=== PATIENT | male | born 1930 | race Caucasian/White ===

== ENCOUNTER 2018-12-30 11:12 | Inpatient (IN) | payer MEDICARE, OTHER ==
--- NOTE | 2018-12-30 12:17 | ER Document Report ---
ED Medical Screen (RME) - General Chief Complaint: Leg Swelling Stated Complaint: LEG SWELLING Time Seen by Provider: 12/30/18 12:14 Notes: Chief complaint: Leg edema History of complain:( obtained from----patient) 88 years old male with a history of CHF, A. fib was sent over here because of difficulty in breathing particularly at nighttime as well as swelling of the lower extremity. Within the last few weeks he has lost about 14 pounds. Also having decreased appetite. Had exertional shortness of breath. Coughing clear sputum. PHYSICAL EXAMINATION: GENERAL: Cachectic HEAD: Atraumatic, normocephalic. EYES: Pupils equal round and reactive to light, extraocular movements intact, conjunctiva are normal. ENT: Nares patent, oropharynx clear without exudates. Moist mucous membranes. NECK: Normal range of motion, supple without lymphadenopathy LUNGS: Bilateral inspiratory rales over the lower lung field HEART: Regular rate and rhythm without murmurs ABDOMEN: Soft, nontender, nondistended abdomen. No guarding, no rebound. No masses appreciated. Examination of genitals-deferred Musculoskeletal: 1-2+ pitting edema over the lower extremity Dictation was performed using [employer] voice recognition software TRAVEL OUTSIDE OF THE [place] IN LAST 30 DAYS: No - Related Data Allergies/Adverse Reactions: aspirin [Aspirin] Allergy (Verified 04/16/12 14:03) heart flutter Past Medical History - Social History Chew tobacco use (# tins/day): No Frequency of alcohol use: None Drug Abuse: None - Past Medical History Cardiac Medical History: Reports: Hx Hypertension - losartan Denies: Hx Coronary Artery Disease, Hx Heart Attack Pulmonary Medical History: Reports: Hx Pneumonia Denies: Hx Asthma, Hx Bronchitis, Hx COPD Neurological Medical History: Denies: Hx Cerebrovascular Accident, Hx Seizures Renal/ Medical History: Denies: Hx Peritoneal Dialysis GI Medical History: Reports: Hx Hiatal Hernia - lansoprazole. Denies: Hx Hepatitis, Hx Ulcer Musculoskeltal Medical History: Reports Hx Arthritis Infectious Medical History: Denies: Hx Hepatitis Past Surgical History: Denies: Hx Open Heart Surgery, Hx Pacemaker - Immunizations Hx Diphtheria, Pertussis, Tetanus Vaccination: Yes - not within 5 years Physical Exam - Vital signs Vitals: Pulse Resp BP Pulse Ox 96 16 118/97 H 100 12/30/18 11:40 12/30/18 11:40 12/30/18 11:40 12/30/18 11:40 Course - Vital Signs Vital signs: Temp Pulse Resp BP Pulse Ox 96 16 118/97 H 100 12/30/18 11:40 12/30/18 11:40 12/30/18 11:40 12/30/18 11:40
[2018-12-30 13:14] LABS: ABSOLUTE LYMPHOCYTES (AUTO) 0.5 10^3/uL (0.5-4.7); ABSOLUTE MONOCYTES (AUTO) 0.4 10^3/uL (0.1-1.4); ABSOLUTE NEUT (AUTO) 2.5 10^3/uL (1.7-8.2); BASOPHILS % (AUTO) 0.6 % (0-2); EOSINOPHILS % (AUTO) 0.4 % (0-6); HEMATOCRIT 30.5 % (37.9-51.0); HEMOGLOBIN 9.7 g/dL (13.5-17.0); LYMPHOCYTES % (AUTO) 14.2 % (13-45); MEAN CORPUSCULAR HEMOGLOBIN 28.6 pg (27.0-33.4); MEAN CORPUSCULAR HGB CONC 31.9 g/dL (32.0-36.0); MEAN CORPUSCULAR VOLUME 90 fl (80-97); MONOCYTES % (AUTO) 12.7 % (3-13); PLATELET COUNT 134 10^3/uL (150-450); RED CELL DISTRIBUTION WIDTH 23.3 % (11.5-14.0); SEGMENTED NEUTROPHILS % (AUTO) 72.1 % (42-78); TOTAL CELLS COUNTED % (AUTO) 100 %; WHITE BLOOD COUNT 3.5 10^3/uL (4.0-10.5)
--- NOTE | 2018-12-30 13:15 | RADIOLOGY REPORT (SQ) ---
EXAM DESCRIPTION: CHEST SINGLE VIEW COMPLETED DATE/TIME: 12/30/2018 1:06 pm REASON FOR STUDY: Congestive heart failure COMPARISON: 12/02/2008 EXAM PARAMETERS: NUMBER OF VIEWS: One view. TECHNIQUE: Single frontal radiographic view of the chest acquired. RADIATION DOSE: NA LIMITATIONS: None. FINDINGS: LUNGS AND PLEURA: Small pleural effusions. Considerable opacification in the left base. Pulmonary vascular congestion with mild pulmonary edema. MEDIASTINUM AND HILAR STRUCTURES: No masses. Contour normal. HEART AND VASCULAR STRUCTURES: Heart size is borderline. BONES: No acute findings. HARDWARE: None in the chest. OTHER: No other significant finding. IMPRESSION: Borderline cardiomegaly with mild pulmonary edema. Small pleural effusions. Likely lef t lower lobe pneumonia. TECHNICAL DOCUMENTATION: JOB ID: [id number] [employer]- All Rights Reserved Reading location - IP/workstation name: [email or web address]
[2018-12-30 13:32] LABS: ALANINE AMINOTRANSFERASE 36 U/L (21-72); ALBUMIN 3.9 g/dL (3.5-5.0); ALKALINE PHOSPHATASE 85 U/L (38-126); ANION GAP 10 (5-19); ASPARTATE AMINO TRANSFERASE 48 U/L (17-59); BILIRUBIN,DIRECT 0.3 mg/dL (0.0-0.4); BILIRUBIN,TOTAL 0.6 mg/dL (0.2-1.3); BLOOD UREA NITROGEN 68 mg/dL (7-20); CALCIUM 8.9 mg/dL (8.4-10.2); CARBON DIOXIDE 28 mmol/L (22-30); CHLORIDE 106 mmol/L (98-107); CREATINE KINASE 68 U/L (55-170); GLUCOSE 87 mg/dL (75-110); POTASSIUM 4.9 mmol/L (3.6-5.0); SODIUM 144.2 mmol/L (137-145)
[2018-12-30 13:45] LABS: CREATINE KINASE MB 2.26 ng/mL (<4.55)
[2018-12-30 13:47] LABS: TROPONIN I 0.041 ng/mL
[2018-12-30] MEDS ORDERED: FUROSEMIDE INJ/PF 40 MG/4 ML SDV IV ONE (15:14)
[2018-12-30] MEDS ORDERED: DOXYCYCLINE HYCLATE 100 MG TABLET PO ONE (15:15)
[2018-12-30 15:17] LABS: INTERNATIONAL RATION (INR) 1.06; PROTHROMBIN TIME 14.3 SEC (11.4-15.4)
[2018-12-30 16:21] LABS: VENOUS BLOOD PCO2 43.4 mmHg (35-63); VENOUS BLOOD PH 7.41 (7.30-7.42)
[2018-12-30] MEDS ORDERED: ALBUTEROL SULFATE 0.083% NEB 2.5 MG/3 ML AMPUL NEB PRN (16:48)
[2018-12-30] MEDS: CEFTRIAXONE 1 GM/D5W RTU 1 GM/50 ML RTUPB IV SCH (17:06)
--- NOTE | 2018-12-30 17:42 | RADIOLOGY REPORT (SQ) ---
EXAM DESCRIPTION: CT CHEST WITHOUT COMPLETED DATE/TIME: 12/30/2018 5:16 pm REASON FOR STUDY: weight loss, cough, SOB COMPARISON: None. TECHNIQUE: CT scan performed of the chest without intravenous contrast. Images reviewed with lung, soft tissue and bone windows. Reconstructed coronal and sagittal MPR images reviewed. All images st ored on PACS. All CT scanners at this facility use dose modulation, iterative reconstruction, and/or weight based d osing when appropriate to reduce radiation dose to as low as reasonably achievable (ALARA). [facility]: Dose Right [facility]: CareDose [facility]: Dose Right [facility]: Teradose 4D [facility]: Smart dotloop RADIATION DOSE: CT Rad equipment meets quality standard of care and radiation dose reduction techniq ues were employed. CTDIvol: 6.3 mGy. DLP: 258 mGy-cm. mGy. LIMITATIONS: No technical limitations. FINDINGS: LUNGS AND PLEURA: There are significant bilateral pleural effusions. Ground-glass infiltr ates are present bilaterally. There is slightly greater opacification in the left lung base. HILAR AND MEDIASTINAL STRUCTURES: Numerous mediastinal lymph nodes are present. These are generally small. HEART AND VASCULAR STRUCTURES: Cardiomegaly. No pericardial effusion. Borderline aneurysmal dilatat ion of the ascending aorta that measures 4 cm. UPPER ABDOMEN: No significant findings. Limited exam. THYROID AND OTHER SOFT TISSUES: No masses. No adenopathy. BONES: No significant finding. HARDWARE: None in the chest. OTHER: No other significant findings. IMPRESSION: 1. Borderline aneurysm of the ascending aorta. 2. Bilateral pleural effusions. 3. Extensive ground-glass infiltrates may suggest chronic interstitial change or interstitial edema. Atypical infection/ inflammatory process not excluded. 4. Mediastinal adenopathy as described. TECHNICAL DOCUMENTATION: JOB ID: [id number] Quality ID # [id number]: Final reports with documentation of one or more dose reduction techniques (e.g., Au tomated exposure control, adjustment of the mA and/or kV according to patient size, use of iterative reconstruction technique) 2010 [employer]- All Rights Reserved Reading location - IP/workstation name: [email or web address]
--- NOTE | 2018-12-30 17:52 | PDOC H&P ---
History of Present Illness Admission Date/PCP: 12/30/18 17:02 VIDYA DOMINGUEZ MD Patient complains of: pedal edema, cough, SOB History of Present Illness: VIDYA DARDEN is a 88 year old male with a past medical history of hypertension who presented with increasing shortness of breath, pedal edema and cough. Patient's son/DPOA is on bedside. Is this patient lives alone at home. He has not been formally diagnosed with dementia but does say that he has been having confusion and memory issues in the past few months. Patient has a history of falling at home. He says that patient started developing increasing pedal edema since the middle of September 2018. He says this was associated with increasing shortness of breath since they noticed his edema. Patient denies having orthopnea. Denies chest pain. Son says he might have some congestive heart failure but did not denies any recent echo done in the past 5 years. He went to his PCP yesterday and was told to proceed to the ER because of his increasing shortness of breath and pedal edema. In the ER, he was noted to have an elevated BNP. Chest x-ray shows pulmonary edema with possible left lower lobe pneumonia. Patient does report of having productive cough with light greenish sputum in the past week. He had some chills but denies fever or shortness of breath. Son does say that patient lost weight from 158 pounds to 143 pounds over the past 3 months. Denies melena or hematochezia. Patient's son/DPOA verbalized patient is a DNR/DNI. Past Medical History Cardiac Medical History: Reports: Hypertension - losartan Denies: Coronary Artery Disease, Myocardial Infarction Pulmonary Medical History: Reports: Pneumonia Denies: Asthma, Bronchitis, Chronic Obstructive Pulmonary Disease (COPD) Neurological Medical History: Denies: Seizures GI Medical History: Reports: Hiatal Hernia - lansoprazole Denies: Hepatitis Musculoskeltal Medical History: Reports: Arthritis Hematology: Denies: Anemia, Sickle Cell Disease Past Surgical History Past Surgical History: Denies: Pacemaker Social History Smoking Status: Never Smoker - Advance Directive Resuscitation Status: Do Not Resuscitate Family History Family History: Reviewed & Not Pertinent Parental Family History Reviewed: Yes - no premature CAD Children Family History Reviewed: No Sibling(s) Family History Reviewed.: No Medication/Allergy Home Medications: Ezetimibe/Simvastatin [Vytorin 10-20 Mg Tablet] 1 each PO 10/04/11 Lansoprazole 30 mg PO 10/04/11 Losartan/Hydrochlorothiazide [Losartan-Hctz 50-12.5 Mg Tab] 1 each PO 10/04/11 Meclizine HCl [Antivert 25 mg Tablet] 25 mg PO ASDIR PRN 10/04/11 Ca Cmb No.1/Vit D3/B-6/FA/B12 [Vitamin D3 1,000 Unit Tablet] PO DAILY 04/15/12 Allergies/Adverse Reactions: aspirin [Aspirin] Allergy (Verified 04/16/12 14:03) heart flutter Review of Systems All systems: reviewed and no additional remarkable complaints except as stated - As mentioned in HPI Physical Exam Vital Signs: Temp Pulse Resp BP Pulse Ox 97.5 F 96 16 118/97 H 100 12/30/18 17:11 12/30/18 11:40 12/30/18 11:40 12/30/18 11:40 12/30/18 11:40 Intake & Output 12/29/18 12/30/18 12/31/18 06:59 06:59 06:59 Weight 145 lb 15.136 oz General appearance: PRESENT: no acute distress, well-developed, well-nourished Head exam: PRESENT: atraumatic, normocephalic Eye exam: PRESENT: conjunctiva pink, EOMI, PERRLA. ABSENT: scleral icterus Ear exam: PRESENT: normal external ear exam Mouth exam: PRESENT: moist, tongue midline Neck exam: ABSENT: carotid bruit, JVD, lymphadenopathy, thyromegaly Respiratory exam: PRESENT: rhonchi - on the bases. ABSENT: rales, wheezes Cardiovascular exam: PRESENT: RRR. ABSENT: diastolic murmur, rubs, systolic murmur Pulses: PRESENT: normal dorsalis pedis pul GI/Abdominal exam: PRESENT: normal bowel sounds, soft. ABSENT: distended, guarding, mass, organolmegaly, rebound, tenderness Rectal exam: PRESENT: deferred Extremities exam: PRESENT: +1 edema Neurological exam: PRESENT: alert, awake, oriented to person, oriented to place, CN II-XII grossly intact. ABSENT: motor sensory deficit Results Laboratory Results: 12/30/18 13:01 12/30/18 13:01 12/30/18 12/30/1819 13:01 13:01 16:00 WBC 3.5 L RBC 3.40 L Hgb 9.7 L Hct 30.5 L MCV 90 MCH 28.6 MCHC 31.9 L RDW 23.3 H Plt Count 134 L Seg Neutrophils % 72.1 Lymphocytes % 14.2 Monocytes % 12.7 Eosinophils % 0.4 Basophils % 0.6 Absolute Neutrophils 2.5 Absolute Lymphocytes 0.5 Absolute Monocytes 0.4 Absolute Eosinophils 0.0 Absolute Basophils 0.0 VBG pH VBG pCO2 VBG HCO3 VBG Base Excess Sodium 144.2 Potassium 4.9 Chloride 106 Carbon Dioxide 28 Anion Gap 10 BUN 68 H Creatinine 1.06 Est GFR ( Amer) > 60 Est GFR (Non-Af Amer) > 60 Glucose 87 Lactic Acid 1.0 Calcium 8.9 Total Bilirubin 0.6 AST 48 ALT 36 Alkaline Phosphatase 85 Total Protein 7.0 Albumin 3.9 12/30/18 16:00 WBC RBC Hgb Hct MCV MCH MCHC RDW Plt Count Seg Neutrophils % Lymphocytes % Monocytes % Eosinophils % Basophils % Absolute Neutrophils Absolute Lymphocytes Absolute Monocytes Absolute Eosinophils Absolute Basophils VBG pH 7.41 VBG pCO2 43.4 VBG HCO3 27.0 VBG Base Excess 2.0 Sodium Potassium Chloride Carbon Dioxide Anion Gap BUN Creatinine Est GFR ( Amer) Est GFR (Non-Af Amer) Glucose Lactic Acid Calcium Total Bilirubin AST ALT Alkaline Phosphatase Total Protein Albumin 12/30/18 12/30/18 12/30/18 13:01 13:01 16:00 Creatine Kinase 68 CK-MB (CK-2) 2.26 Troponin I 0.041 0.044 NT-Pro-B Natriuret Pep [id number] H Impressions: Chest X-Ray 12/30/18 12:14 IMPRESSION: Borderline cardiomegaly with mild pulmonary edema. Small pleural effusions. Likely left lower lobe pneumonia. Chest CT 12/30/18 16:48 IMPRESSION: 1. Borderline aneurysm of the ascending aorta. 2. Bilateral pleural effusions. 3. Extensive ground-glass infiltrates may suggest chronic interstitial change or interstitial edema. Atypical infection/ inflammatory process not excluded. 4. Mediastinal adenopathy as described. Assessment & Plan - Diagnosis (1) CHF exacerbation Is this a current diagnosis for this admission?: Yes Plan: Will start patient on IV Lasix 40 mg IV q 12. MANNY's. Is currently saturating well on room air. We will also order an echocardiogram. (2) Pneumonia Is this a current diagnosis for this admission?: Yes Plan: Will start patient on IV Rocephin. Will order sputum culture. We will also check for. Will pursue chest CT to rule out mass causing possible post obstructive pneumonia as patient also has been having weight loss in the past 3 months. (3) Anemia Is this a current diagnosis for this admission?: Yes Plan: Appears he has pancytopenia. No previous labs to compare. Will start with basic anemia work-up. - Time Time Spent: 30 to 50 Minutes
[2018-12-30 18:24] LABS: APPEARANCE,URINE CLEAR; BILIRUBIN,URINE NEGATIVE (NEGATIVE); COLOR,URINE STRAW; GLUCOSE, URINE NEGATIVE (NEGATIVE); KETONES,URINE NEGATIVE (NEGATIVE); LEUKOCYTE ESTERASE,URINE NEGATIVE (NEGATIVE); NITRITE,URINE NEGATIVE (NEGATIVE); PROTEIN,URINE NEGATIVE (NEGATIVE); UROBILINOGEN,URINE NEGATIVE mg/dL (<2.0)
[2018-12-30] MEDS: FUROSEMIDE INJ/PF 40 MG/4 ML SDV IV SCH (21:56)
--- NOTE | 2018-12-30 22:03 | ER Document Report ---
Entered by GURDEEP SEVILLA SCRIBE 12/30/18 1526 Acting as scribe for:KENNY RAMSEY DO ED General - General Chief Complaint: Leg Swelling Stated Complaint: LEG SWELLING Time Seen by Provider: 12/30/18 12:14 Mode of Arrival: Ambulatory Information source: Patient Notes: 88-year-old male who presents to the emergency department today with complaints of a 15 pound weight loss over the last few months with concern for CHF yesterday at his primary care physician's office. Patient has no CP. No h/o CHF. Patient has not required home oxygen in the past. Patient was started on furosemide in September. Son at bedside states the patient has had a cough for the last few weeks with associated fevers and chills. Patient denies any shortness of breath, pain, or vomiting. TRAVEL OUTSIDE OF THE [place] IN LAST 30 DAYS: No - HPI Onset: Other Onset/Duration: Gradual Severity: None Associated symptoms: Leg swelling Exacerbated by: Movement, Walking - Related Data Allergies/Adverse Reactions: aspirin [Aspirin] Allergy (Verified 04/16/12 14:03) heart flutter Past Medical History - General Information source: Patient - Social History Smoking Status: Never Smoker Cigarette use (# per day): No Chew tobacco use (# tins/day): No Frequency of alcohol use: None Drug Abuse: None Lives with: Family Family History: Reviewed & Not Pertinent Patient has suicidal ideation: No Patient has homicidal ideation: No - Past Medical History Cardiac Medical History: Reports: Hx Hypertension - losartan Pulmonary Medical History: Reports: Hx Pneumonia GI Medical History: Reports: Hx Hiatal Hernia - lansoprazole Musculoskeletal Medical History: Reports Hx Arthritis - Immunizations Hx Diphtheria, Pertussis, Tetanus Vaccination: Yes - not within 5 years Review of Systems - Review of Systems Constitutional: See HPI, Chills, Fever, Weight loss - 15 lbs EENT: No symptoms reported Cardiovascular: No symptoms reported Respiratory: See HPI, Cough, Short of breath Gastrointestinal: denies: Abdominal pain, Vomiting Genitourinary: No symptoms reported Male Genitourinary: No symptoms reported Musculoskeletal: No symptoms reported Skin: No symptoms reported Hematologic/Lymphatic: No symptoms reported Neurological/Psychological: No symptoms reported -: Yes All other systems reviewed and negative Physical Exam - Vital signs Vitals: Pulse Resp BP Pulse Ox 96 16 118/97 H 100 02/27/19 11:40 12/30/18 11:40 12/30/18 11:40 12/30/18 11:40 Interpretation: Normal - General General appearance: Alert In distress: None - chronically ill-appearing - HEENT Head: Normocephalic, Atraumatic Eyes: Normal Pupils: PERRL - Respiratory Respiratory status: No respiratory distress Chest status: Nontender Breath sounds: Normal Chest palpation: Normal - Cardiovascular Rhythm: Regular Heart sounds: Normal auscultation Murmur: No - Abdominal Inspection: Normal Distension: No distension Bowel sounds: Normal Tenderness: Nontender Organomegaly: No organomegaly - Back Back: Normal, Nontender - Extremities General upper extremity: Normal inspection, Nontender, Normal color, Normal ROM, Normal temperature General lower extremity: Nontender, Edema, Normal color, Normal ROM, Normal temperature, Normal weight bearing. No: Donn's sign - Neurological Neuro grossly intact: Yes Cognition: Normal Orientation: AAOx4 Jackie Coma Scale Eye Opening: Spontaneous Buckner Coma Scale Verbal: Oriented Buckner Coma Scale Motor: Obeys Commands Jackie Coma Scale Total: 15 Speech: Normal Motor strength normal: LUE, RUE, LLE, RLE Sensory: Normal - Psychological Associated symptoms: Normal affect, Normal mood - Skin Skin Temperature: Warm Skin Moisture: Dry Skin Color: Normal Course - Re-evaluation Re-evalutation: 12/30/18 15:[address] Paulson, will admit patient. 12/30/18 21:58 Patient with SOB, increasing leg edema No h/o CHF or ECHO Was seen at [facility]D yesterday for worsening SOB Denies CP Also with recent weight loss Exam and CXR c/w fluid OL Hypoxic with movement Will admit to tele Patient and family agree with plan Hospitalist will admit. - Vital Signs Vital signs: Temp Pulse Resp BP Pulse Ox 97.9 F 108 H 20 136/81 H 95 12/30/18 21:37 12/30/18 21:37 12/30/18 21:37 12/30/18 21:37 12/30/18 21:37 - Laboratory Result Diagrams: 12/30/18 13:01 12/30/18 13:01 Laboratory results interpreted by me: 12/30/18 12/30/18 12/30/18 13:01 13:01 13:01 WBC 3.5 L RBC 3.40 L Hgb 9.7 L Hct 30.5 L MCHC 31.9 L RDW 23.3 H Plt Count 134 L BUN 68 H NT-Pro-B Natriuret Pep [id number] H - Diagnostic Test Radiology reviewed: Reports reviewed - EKG Interpretation by Me EKG shows normal: Sinus rhythm Discharge - Discharge Clinical Impression: Hypoxia CHF exacerbation Qualifiers: Heart failure type: unspecified Qualified Code(s): I50.9 - Heart failure, unspecified Condition: Stable Disposition: ADMITTED INPATIENT Admitting Provider: Arieist Sarah Paulson Unit Admitted: Telemetry I personally performed the services described in the documentation, reviewed and edited the documentation which was dictated to the scribe in my presence, and it accurately records my words and actions.
--- NOTE | 2018-12-31 00:05 | XCELERA REPORT ---
[address] [address] Transthoracic Echocardiogram Report Name: VIDYA DARDEN Age: 88 yrs Gender: Male : 1930 Patient Status: Emergency Patient Location: [place] [address]^A Study Date: 12/30/2018 06:19 PM Height: 66 in Weight: 145 lb BSA: 1.7 m2 Procedure: A two-dimensional transthoracic echocardiogram with color flow and Doppler was performed. Study Quality: Fair. Reason For Study: pulmonary edema,elev BNP,denies prev echo History: pulmonary edema,elev BNP,. Ordering Physician: NELSON PRESTON Performed By: Brenda Gamez Interpretation Summary The right atrium is mildly dilated. The left atrial size is normal. The interatrial septum is intact with no evidence for an atrial septal defect. There is no evidence of mitral valve prolapse. There is no vegetation seen on the mitral valve. There is mild mitral stenosis There is a moderate to severe amount of mitral regurgitation There is no aortic valve stenosis There is aortic sclerosis without aortic stenosis. There is a mild amount of aortic regurgitation There is no tricuspid stenosis. There is servere pulmonary hypertension by echo RVSP is 61 to 66 mmm of Hg , with RA mean of 10 to15. There is no pulmonic valvular stenosis. There is a mild amount of pulmonic regurgitation The aortic root is normal size. There is no pericardial effusion. Moderate size left pleural effusion. There is a clot in the left pleural effusion. The left ventricle is mildly to moderately dilated. There is normal left ventricular wall thickness. LV EF is 35-40% Left ventricular systolic function is moderately reduced. There is no thrombus. There is no ventricular septal defect visualized. MMode/2D Measurements & Calculations RVDd: 2.3 cm LVIDd: 5.7 cm FS: 10.9 % Ao root diam: 2.9 cm IVSd: 0.91 cm LVIDs: 5.1 cm EDV(Teich): 161.2 ml Ao root area: 6.6 cm2 LVPWd: 1.2 cm ESV(Teich): 123.5 ml LA dimension: 3.5 cm EF(Teich): 23.4 % Doppler Measurements & Calculations MV E max nayan: MV P1/2t max nayan: Ao V2 max: AI max nayan: 79.0 cm/sec 95.7 cm/sec 142.5 cm/sec 232.9 cm/sec MV A max nayan: MV P1/2t: 62.2 msec Ao max PG: AI max P.8 cm/sec MVA(P1/2t): 3.5 cm2 8.1 mmHg 22.6 mmHg MV E/A: 1.5 MV dec slope: AI dec slope: 175.0 cm/sec2 450.8 cm/sec2 AI P1/2t: MV dec time: 389.9 msec 0.21 sec LV V1 max PG: PA V2 max: PI end-d nayan: TR max nayan: 3.8 mmHg 63.8 cm/sec 155.4 cm/sec 358.3 cm/sec LV V1 max: PA max P.6 mmHg TR max P.3 cm/sec 51.4 mmHg AV P1/2t-pr_phl: MV P1/2t-pr_phl: 411.6 msec 62.2 msec Left Ventricle The left ventricle is mildly to moderately dilated. There is normal left ventricular wall thickness. LV EF is 35-40%. Left ventricular systolic function is moderately reduced. There is moderate to severe global hypokinesis of the left ventricle. There is no thrombus. There is no ventricular septal defect visualized. Right Ventricle The right ventricle is mild to moderately dilated. The right ventricular systolic function is borderline reduced. Atria The right atrium is mildly dilated. The left atrial size is normal. The interatrial septum is intact with no evidence for an atrial septal defect. Mitral Valve There is no evidence of mitral valve prolapse. There is no vegetation seen on the mitral valve. There is mild mitral stenosis. There is a moderate to severe amount of mitral regurgitation. Aortic Valve There is no aortic valvular vegetation. There is no aortic valve stenosis. There is aortic sclerosis without aortic stenosis. There is no LVOT obstruction. There is a mild amount of aortic regurgitation. Tricuspid Valve There is no tricuspid stenosis. There is servere pulmonary hypertension by echo. RVSP is 61 to 66 mmm of Hg , with RA mean of 10 to15. Pulmonic Valve There is no pulmonic valvular stenosis. There is a mild amount of pulmonic regurgitation. Great Vessels The aortic root is normal size. The inferior vena cava appeared dilated and decreased < 50% with respiration (RAP 15-20 mmHg). Effusions There is no pericardial effusion. Moderate size left pleural effusion. There is a clot in the left pleural effusion. : NELSON PRESTON > Anabel Ferguson
[2018-12-31 05:17] LABS: ABSOLUTE RETICS # 0.086 10^6/uL (0.028-0.122); RETICULOCYTE COUNT (AUTO) 2.52 % (0.66-2.85)
[2018-12-31 05:43] LABS: IRON(TIBC) 18.7 ug/dL (49-181)
[2018-12-31] MEDS ORDERED: FONDAPARINUX SODIUM INJ 2.5 MG/0.5 ML DISP.SYRIN SUBCUT SCH (08:00)
[2018-12-31] MEDS: FUROSEMIDE INJ/PF 40 MG/4 ML SDV IV SCH (11:04)
[2018-12-31] MEDS ORDERED: LISINOPRIL 10 MG TABLET PO SCH (13:30)
[2018-12-31] MEDS ORDERED: CARVEDILOL 12.5 MG TABLET PO SCH (14:00)
--- NOTE | 2018-12-31 16:28 | PDOC PROGRESS REPORT ---
Subjective Progress Note for:: 12/31/18 Subjective:: This is a very pleasant 88 years old male patient who presented with shortness of breath which is progressively getting worse and associated with bilateral leg edema and cough. His blood work shows anemia with hemoglobin of 9.7 and markedly elevated BNP of 39,300. His CT scan reported as bilateral pleural effusion. Extensive groundglass infiltrates may suggest chronic interstitial changes or interstitial edema a typical infection/inflammatory process not excluded. Patient has echo which is reported as left ejection fraction 35-40%. For his possible pneumonia patient has been started on ceftriaxone and for systolic congestive heart failure exacerbation patient has been started on Coreg, lisinopril and IV Lasix. Reason For Visit: CHF EXACERBATION Physical Exam Vital Signs: Temp Pulse Resp BP Pulse Ox 97.4 F 95 16 122/66 98 12/31/18 12:00 12/31/18 14:00 12/31/18 12:00 12/31/18 12:00 12/31/18 12:00 Intake & Output 12/30/18 12/31/18 01/01/19 06:59 06:59 06:59 Intake Total 50 Balance 50 Weight 67.7 kg 67.7 kg General appearance: PRESENT: mild distress Head exam: PRESENT: atraumatic, normocephalic Eye exam: PRESENT: conjunctiva pink Neck exam: ABSENT: carotid bruit, JVD, lymphadenopathy, thyromegaly Respiratory exam: PRESENT: decreased breath sounds - Bilaterally Cardiovascular exam: PRESENT: RRR. ABSENT: diastolic murmur, rubs, systolic murmur GI/Abdominal exam: PRESENT: normal bowel sounds, soft. ABSENT: distended, g uarding, mass, organolmegaly, rebound, tenderness Extremities exam: PRESENT: +2 edema - Bilaterally Neurological exam: PRESENT: alert, awake Results Laboratory Results: 12/30/18 13:01 12/30/18 13:01 12/30/18 12/30/18 12/30/18 16:00 16:00 17:56 Retic Count (auto) Absolute Retic VBG pH 7.41 VBG pCO2 43.4 VBG HCO3 27.0 VBG Base Excess 2.0 Lactic Acid 1.0 Iron TIBC % Saturation Ferritin Vitamin B12 Folate Urine Color STRAW Urine Appearance CLEAR Urine pH 7.0 Ur Specific [place] 1.010 Urine Protein NEGATIVE Urine Glucose (UA) NEGATIVE Urine Ketones NEGATIVE Urine Blood NEGATIVE Urine Nitrite NEGATIVE Ur Leukocyte Esterase NEGATIVE Urine WBC (Auto) 0 Urine RBC (Auto) 0 12/31/18 12/31/18 05:00 05:00 Retic Count (auto) 2.52 Absolute Retic 0.086 VBG pH VBG pCO2 VBG HCO3 VBG Base Excess Lactic Acid Iron 18.7 L TIBC 382 % Saturation 5 Ferritin 73.30 Vitamin B12 518.0 Folate 11.90 Urine Color Urine Appearance Urine pH Ur Specific [place] Urine Protein Urine Glucose (UA) Urine Ketones Urine Blood Urine Nitrite Ur Leukocyte Esterase Urine WBC (Auto) Urine RBC (Auto) 12/30/18 12/30/18 12/30/18 13:01 13:01 16:00 Creatine Kinase 68 CK-MB (CK-2) 2.26 Troponin I 0.041 0.044 NT-Pro-B Natriuret Pep 48813 H Impressions: Chest X-Ray 12/30/18 12:14 IMPRESSION: Borderline cardiomegaly with mild pulmonary edema. Small pleural effusions. Likely left lower lobe pneumonia. Chest CT 12/30/18 16:48 IMPRESSION: 1. Borderline aneurysm of the ascending aorta. 2. Bilateral pleural effusions. 3. Extensive ground-glass infiltrates may suggest chronic interstitial change or interstitial edema. Atypical infection/ inflammatory process not excluded. 4. Mediastinal adenopathy as described. Assessment & Plan - Diagnosis (1) Acute systolic congestive heart failure Is this a current diagnosis for this admission?: Yes Plan: Patient has been started on IV Lasix, Coreg, lisinopril and Lipitor. Daily weight. Strict input and output (2) Pneumonia Qualifiers: Laterality: bilateral Is this a current diagnosis for this admission?: Yes Plan: Suspected. Agent has been started on ceftriaxone and Zithromax on top of it. (3) Normocytic anemia Is this a current diagnosis for this admission?: Yes Plan: Stool for occult blood. And H&H in the morning (4) Hypertension Qualifiers: Hypertension type: essential hypertension Qualified Code(s): I10 - Essential (primary) hypertension Is this a current diagnosis for this admission?: Yes Plan: Continue home medication
[2018-12-31 16:58] VITALS: BP 108/64
[2018-12-31] MEDS ORDERED: AZITHROMYCIN 500 MG in DEXTROSE 5%-WATER 250 ML IV SCH (18:00)
[2018-12-31] MEDS: CEFTRIAXONE 1 GM/D5W RTU 1 GM/50 ML RTUPB IV SCH (18:01)
[2018-12-31] MEDS ORDERED: ATORVASTATIN CALCIUM 20 MG TABLET PO SCH (22:00)
--- NOTE | 2018-12-31 22:21 | EKG REPORT ---
SEVERITY:- ABNORMAL ECG - SINUS RHYTHM RIGHT BUNDLE BRANCH BLOCK PROBABLE INFERIOR INFARCT, OLD : Confirmed by: Reji Lozano 31-Dec-2018 22:20:59
--- NOTE | 2019-01-01 18:09 | Death Summary ---
Summary Date : 12/31/18 Time of :: 20:08 Resuscitation Status: Do Not Resuscitate - Final Diagnosis (1) Acute systolic congestive heart failure Is this a current diagnosis for this admission?: Yes (2) Pneumonia Is this a current diagnosis for this admission?: Yes (3) Normocytic anemia Is this a current diagnosis for this admission?: Yes (4) Hypertension Is this a current diagnosis for this admission?: Yes Hospital Course:: This is a very pleasant 88 years old male patient who presented with shortness of breath which is progressively getting worse and associated with bilateral leg edema and cough. His blood work shows anemia with hemoglobin of 9.7 and markedly elevated BNP of 39,300. His CT scan reported as bilateral pleural effusion. Extensive groundglass infiltrates may suggest chronic interstitial changes or interstitial edema a typical infection/inflammatory process not excluded. Patient has echo which is reported as left ejection fraction 35-40%. For his possible pneumonia patient has been started on ceftriaxone and for systolic congestive heart failure exacerbation patient has been started on Coreg, lisinopril and IV Lasix. Per the nurse in charge of the patient patient was awake alert and talking at about shift changing patient's conditions deteriorated rapidly that his blood pressure dropped to 60/45, his heart rates to 50 become diaphoretic and unable to arouse. Patient pronounced sedated at 2007.
== END 2018-12-31 22:30 | disposition left against medical advice (07) | DRG 291 ==
LOC: ER 11:12 → EH 17:02 → 4N 21:20 → OBSVTOIN 12-31 12:50
PROVIDERS: ADMIT Internal Medicine; ATTEND Internal Medicine
DX: I11.0 Hypertensive heart disease with heart failure (principal); J18.9 Pneumonia, unspecified organism; I50.21 Acute systolic (congestive) heart failure; J44.1 Chronic obstructive pulmonary disease with (acute) exacerbation; J44.0 Chronic obstructive pulmonary disease with (acute) lower respiratory infection; Z66 Do not resuscitate; D64.9 Anemia, unspecified; M19.90 Unspecified osteoarthritis, unspecified site; Z91.81 History of falling; Z79.899 Other long term (current) drug therapy; Z88.6 Allergy status to analgesic agent
CPT/HCPCS: 36415; 71045; 71250; 80053; 81001; 82550; 82553; 82607; 82728; 82746; 82803; 82962; 83540; 83550; 83605; 83880; 84484; 85025; 85045; 85610; 87040; 87086; 93005; 93010; 93306; 99285; G0378; J0456; J0696; J1652; J1940; J3490; J7060